=== PATIENT | female | born 1985 | race Caucasian/White ===

== ENCOUNTER → 2023-10-23 13:15 | Outpatient (BNV) | payer OTHER, SELFPAY | PROVIDERS: Visit Provider Internal Medicine | DX: D47.2 Monoclonal gammopathy (principal) | CPT/HCPCS: 99204; 99214 ==

== ENCOUNTER 2023-10-25 09:04 | Outpatient (REF) | payer OTHER, SELFPAY ==
[2023-10-26 15:11] LABS: Creatinine, mg/dL 69.85; Protein mg/dL 7 mg/dL
[2023-10-27 06:44] LABS: Creatinine, 24Hr Urine 1.3 G/Day (1.0-2.0); Protein 24 Hr Urine < 128 mg/Day (<150); Total Volume 24 Hour Urine 1825 mL
[2023-11-08 08:44] LABS: Free Kappa, 24Hr Urine 3.06; Free Lambda, 24Hr Urine 1.33
== END 2023-10-25 09:05 | disposition home or self-care (01) ==
LOC: HO.LNP 09:04
PROVIDERS: Visit Provider Internal Medicine
DX: D47.2 Monoclonal gammopathy (principal)
CPT/HCPCS: 83521; 84156; 86335

== ENCOUNTER 2024-05-12 11:13 | Outpatient (REF) | payer OTHER, SELFPAY ==
[2024-05-12 11:56] LABS: MANUAL DIFF FLAG NO
[2024-05-12 12:45] LABS: Basophils Percent Auto 0.8 % (0-2); Eosinophils Absolute Auto 0.1 X10*3/uL (0.0-0.4); Eosinophils Percent Auto 2.2 % (0-4); Hematocrit 37.1 % (37.0-47.0); Hemoglobin 12.4 g/dl (12.0-16.0); Imm Gran Abs Auto 0.01 X10*3/uL (0.00-0.03); Imm Gran Pct Auto 0.2 % (0.0-0.4); Lymphocytes Absolute Auto 2.2 X10*3/uL (1.2-4.9); Lymphocytes Percent Auto 42.6 % (20-40); Mean Corpuscular HGB Conc 33.4 g/dl (31.0-35.0); Mean Corpuscular Hemoglobin 29.9 pg (27.0-33.0); Mean Corpuscular Volume 89.4 fL (80.0-98.0); Monocytes Absolute Auto 0.4 X10*3/uL (0.1-1.2); Monocytes Percent Auto 7.9 % (2-11); Neutrophils Absolute Auto 2.4 x10*3/uL (2.0-8.3); Neutrophils Percent Auto 46.3 % (45-73); Platelet Count 282 X10*3/uL (160-400); Red Blood Count 4.15 X10*6/uL (4.20-5.50); Red Cell Distribution Width 12.2 % (11.0-16.0); White Blood Count 5.1 X10*3/uL (4.8-10.8)
[2024-05-12 13:10] LABS: Alanine Aminotransferase 53 U/L (0-31); Albumin Level 4.6 g/dL (3.5-5.0); Alkaline Phosphatase 37 U/L (39-117); Anion Gap 12 (12-20); Aspartate Amino Transferase 31 U/L (5-31); Bilirubin Total 0.6 mg/dL (0.0-1.0); Blood Urea Nitrogen 14 mg/dL (9-16); Calcium 9.7 mg/dL (8.4-10.2); Carbon Dioxide 25 mmol/L (22-29); Chloride 104 mmol/L (96-108); Estimated Glomerular Filt Rate > 60; Glucose Random 92 mg/dL (60-115); Potassium 4.2 mmol/L (3.3-5.1); Sodium 137 mmol/L (135-145)
[2024-05-13 10:49] LABS: Beta-2 Microglobulin, Serum 1.97 mg/L (< OR = 2.51)
[2024-05-13 11:59] LABS: IgA 22 mg/dL (47-310); IgG 2610 mg/dL (600-1640); IgM 67 mg/dL (50-300)
[2024-05-13 17:24] LABS: Kappa Light Chain, Free Serum 9.5 mg/L (3.3-19.4); Kappa/Lambda Lt Ch Free Ratio 0.14 (0.26-1.65)
== END 2024-05-12 11:14 | disposition home or self-care (01) ==
LOC: HO.LAB 11:13
PROVIDERS: PCP Family Medicine; Visit Provider Internal Medicine
DX: D47.2 Monoclonal gammopathy (principal)
CPT/HCPCS: 36415; 80053; 82232; 82784; 83521; 85025

== ENCOUNTER 2024-10-17 13:46 | Outpatient (REF) | payer OTHER, SELFPAY ==
--- OUTSIDE RECORDS SUMMARY | 2024-10-17 13:49 | XMS_ITS | Data Portability ---
Author Organization [facility], , [facility] Address [address] [place] [address] Care Team Providers Care Recreational Counselor Name Role Phone QUIANA MANN Rn Neurosurgical OLGA LYNCH Fire Extinguisher Sprinkler Inspector [phone] BILL JOSEPH Primary Care Provider Assessment No assessment recorded. Plan of Treatment Reminders Order Date Submit Date Provider Last Modified By Organization Details Last Modified Time Details Appointments Wellness Visit 30 2024 04:30P M Emi Gates MD Not available Not available Not available Lab hepatitis C virus Ab, serum 2022 023 [facility], [address] [place] [address], [id number], 03/26/2023 15:22:49 celiac disease comprehen sive panel, serum 2022 023 [facility], [address] [place] [address], [id number], 03/26/2023 15:22:48 CBC 2022 023 [facility], [address] [place] [address], [id number], 03/14/2023 12:03:38 TSH, serum or plasma 2022 023 [facility], [address] [place] [address], [id number], 03/26/2023 15:22:50 ESR (erythroc yte sedimenta tion rate), blood 2022 023 [facility], [address] [place] [address], [id number], 03/14/2023 16:45:46 C-reactiv e protein, quantitat celia, serum or plasma 2022 023 [facility], [address] [place] [address], [id number], 03/30/2023 09:34:40 vitamin B12, serum 2022 023 [facility], [address] [place] [address], [id number], 03/15/2023 14:11:07 folate, serum 2022 023 [facility], [address] [place] [address], [id number], 03/15/2023 14:11:08 iron + total iron-bind ing capacity (TIBC), serum 2022 023 [facility], [address] [place] [address], [id number], 03/15/2023 14:24:00 lipid panel, serum 2023 024 [facility], [address] [place] [address], [id number], 04/07/2024 14:42:34 TSH, serum or plasma 2023 024 [facility], [address] [place] [address], [id number], 04/04/2024 12:04:55 glucose, QN [mass/vol ume], serum or plasma 2023 024 [facility], [address] [place] [address], [id number], 04/07/2024 14:42:34 Referral gastroent erologist referral - pt with bloating, hx of idiopathi c urticaria , bloating, and per ancestry celiac carrier, endorses bloating after gluten, eliminate d and improved symptoms 2022 023 [email or web address] [facility], [address] [place], [id number], 03/19/2023 17:16:34 Procedures None recorded. Surgeries None recorded. Imaging None recorded. Medication Orders sertralin e 50 mg tablet 2023 024 [facility][id number], [address] [place], [place], [id number], 04/03/2024 16:04:14 hydroxyzi ne HCl 25 mg tablet 2023 024 [facility] #[id number], [address], [place], [id number], 04/03/2024 16:04:15 Patient TargetsNo targets recorded. 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 ? ?L 3.98-1 0.04 Not Available [address], [address], 03/14/2023 12:03:38 03/14/20 23 03/14/2023 CBC RBC 4.20 M/? ? ?L 3.93-5 .22 Not Available [address], [address], 03/14/2023 12:03:38 03/14/20 23 03/14/2023 CBC HGB 12.2 g/dL 11.2-1 5.7 Not Available [address], [address], 03/14/2023 12:03:38 03/14/20 23 03/14/2023 CBC HCT 37.8 % 34.1-4 4.9 Not Available [address], [address], 03/14/2023 12:03:38 03/14/20 23 03/14/2023 CBC MCV 90.0 fL 79.4-9 4.8 Not Available [address], [address], 03/14/2023 12:03:38 03/14/20 23 03/14/2023 CBC MCH 29.0 pg 25.6-3 2.2 Not Available [address], [address], 03/14/2023 12:03:38 03/14/20 23 03/14/2023 CBC MCHC 32.3 g/dL 32.2-3 5.5 Not Available [address], [address], 03/14/2023 12:03:38 03/14/20 23 03/14/2023 CBC plt 334 K/? ? ?L 182-36 9 Not Available [address], [address], 03/14/2023 12:03:38 03/14/20 23 03/14/2023 CBC MPV 9.2 fL 9.4-12 .3 low Not Available [address], [address], 03/14/2023 12:03:38 03/14/20 23 03/14/2023 CBC neut% 45.1 % 34.0-7 1.1 Not Available [address], [address], 03/14/2023 12:03:38 03/14/2003/14/2023 CBC neut# 3.07 1.56-6 .13 Not Available [address], [address], 03/14/2023 12:03:38 03/14/2003/14/2023 CBC lymph % 45.1 % 19.3-5 1.7 Not Available [address], [address], 03/14/2023 12:03:38 03/14/2003/14/2023 CBC lymph # 3.07 K/? ? ?L 1.18-3 .74 Not Available [address], [address], 03/14/2023 12:03:38 03/14/2003/14/2023 CBC mono% 7.0 % 4.7-12 .5 Not Available [address], [address], 03/14/2023 12:03:38 03/14/2003/14/2023 CBC mono# 0.48 0.24-0 .56 Not Available [address], [address], 03/14/2023 12:03:38 03/14/2003/14/2023 CBC eo% 2.1 % 0.7-5. 8 Not Available [address], [address], 03/14/2023 12:03:38 03/14/2003/14/2023 CBC eo# 0.14 0.04-0 .36 Not Available [address], [address], 03/14/2023 12:03:38 03/14/20 23 03/14/2023 CBC baso% 0.6 % 0.1-1. 2 Not Available [address], [address], 03/14/2023 12:03:38 03/14/20 23 03/14/2023 CBC baso# 0.04 0.00-0 .08 Not Available [address], [address], 03/14/2023 12:03:38 03/14/20 23 03/14/2023 CBC RDW-CV 12.7 % 11.7-1 4.4 Not Available [address], [address], 03/14/2023 12:03:38 03/14/20 23 03/14/2023 CBC Ig% 0.100 % 0.000- 1.500 Ig % >0.5 Indic ates possi ble Left Shift Not Available [address], [address], 03/14/2023 12:03:38 03/14/20 23 03/14/2023 CBC Ig# 0.010 0.000- 0.093 Not Available [address], [address], 03/14/2023 12:03:38 03/14/20 23 03/14/2023 CBC NRBC% 0.0 % 0.0-0. 2 Not Available [address], [address], 03/14/2023 12:03:38 03/14/20 23 03/14/2023 CBC NRBC# 0.000 0.000- 0.012 Not Available [address], [address], 03/14/2023 12:03:38 03/14/20 23 03/14/2023 ESR sed rate 45.0 0.0-15 .0 high Not Available [address], [address], 03/14/2023 16:45:46 03/14/20 23 03/15/2023 VITAM IN B12 vitamin B12 351 pg/mL 230-10 50 Not Available [address], [address], 03/15/2023 14:11:07 03/14/20 23 03/15/2023 FOLAT E folate 8 NG/mL 3-16 Not Available [address], [address], 03/15/2023 14:11:08 03/14/20 23 03/15/2023 IRON PANEL iron 81 ug/dL 35-150 Not Available [address], [address], 03/15/2023 14:24:00 03/14/20 23 03/15/2023 IRON PANEL T.I.B.C. 312 ug/dL 250-45 0 Not Available [address], [address], 03/15/2023 14:24:00 03/14/20 23 03/15/2023 IRON PANEL % saturation 26.0 % Not Available [address], [address], 03/15/2023 14:24:00 03/14/20 23 03/26/2023 SHREYAS C DISEA SE COMPR EHENS CELIA PANEL interpretati on No serol ogica l evide nce for shreyas c disea se is prese nt. Consi gail IgA defic iency . Not Available [facility] [address] [place] [address] Phillip SainiborLUX vogel, [address], 03/26/2023 15:22:48 03/14/20 23 03/26/2023 SHREYAS C DISEA SE COMPR EHENS CELIA PANEL tissue transglutami nase Ab, IgA <1.0 U/mL normal Value Inter preta tion ----- ----- ----- ---- <15.0 Antib sherice not detec noah > or = 15.0 Antib sherice detec noah Not Available [facility] [address], [place], [address], 03/26/2023 15:22:48 03/14/2003/26/2023 SHREYAS C DISEA SE COMPR EHENS CELIA PANEL immunoglobul in A 35 mg/dL 47-310 low Not Available [facility] [address], [place], [address], 03/26/2023 15:22:48 03/14/2003/26/2023 HEPAT ITIS C AB W/REF L TO HCV RNA, QN, PCR hepatitis C antibody NON-RE ACTIVE non-re active normal HCV antib sherice was non-r eacti ve. There is no labor atory evide nce of HCV infec tion. In most cases , no furth er actio n is requi red. Howev er, if recen t HCV expos ure is suspe cted, a test for HCV RNA (test code 25449 ) is sugwilliams motad. For addit ional infor bruce guevara e refer to http: //[facility] kandice morillo stdia gnost ics.c om/fa q/FAQ 22v1 (This link is being provi ded for infor bruce sheth/ educa huy l purpo ses only. ) Not Available [facility] [address], [place], [address], 03/26/2023 15:22:49 03/14/2003/26/2023 TSH TSH 2.67 mIU/L normal Refer ence Range > or = 20 Years 0.40- 4.50 Pregn kavitha Range s First trime ster 0.26- 2.66 Secon d trime ster 0.55- 2.73 Third trime ster 0.43- 2.91 Not Available [facility] [address], [place], [address], 03/26/2023 15:22:50 03/14/2003/26/2023 TISSU E TRANS GLUTA HAL E AB, IGG tissue transglutami nase Ab, IgG <1.0 U/mL normal Value Inter preta tion ----- ----- ----- ---- <15.0 Antib sherice not detec noah > or = 15.0 Antib sherice detec noah Not Available [facility] [address], [place], [address], 03/26/2023 15:22:51 03/14/2003/30/2023 C-RIKI CTIVE PROTE IN C-reactive protein 1.1 mg/L <8.0 normal Not Available [facility] [address], [place], [address], 03/30/2023 09:34:40 08/07/20 23 08/08/2023 C-RIKI CTIVE PROTE IN (RCRP ) C-reactive protein (rcrp) 1.8 mg/dL 0.5-9. 0 LIPS= Speci men Sligh tly Lipem ic. Chem Resul ts may be effec noah. Not Available [address], [place], [address], 08/08/2023 11:43:47 08/07/2008/11/2023 SHREYAS C DISEA SE COMPR EHENS CELIA PANEL interpretati on No serol ogica l evide nce for shreyas c disea se is prese nt. Consi gail IgA defic iency . Not Available [facility] [address], [place], [address], 08/11/2023 07:18:26 08/07/20 23 08/11/2023 SHREYAS C DISEA SE COMPR EHENS CELIA PANEL tissue transglutami nase Ab, IgA <1.0 U/mL normal Value Inter preta tion ----- ----- ----- ---- <15.0 Antib sherice not detec noah > or = 15.0 Antib sherice detec onah Not Available [facility] [address], [address], 08/11/2023 07:18:26 08/07/2008/11/2023 SHREYAS C DISEA SE COMPR EHENS CELIA PANEL immunoglobul in A 29 mg/dL 47-310 low Not Available [facility] [address], [address], 08/11/2023 07:18:26 08/07/20 23 08/11/2023 SED RATE BY MODIF IED WESTE RGREN sed rate by modified westergren 48 mm/h < or = 20 high Not Available [facility] [address], [address], 08/11/2023 07:18:27 08/07/2008/11/2023 TISSU E TRANS GLUTA HAL E AB, IGG tissue transglutami nase Ab, IgG <1.0 U/mL normal Value Inter preta tion ----- ----- ----- ---- <15.0 Antib sherice not detec noah > or = 15.0 Antib sherice detec noah Not Available [facility] [address], [address], 08/11/2023 07:18:27 04/03/20 24 04/04/2024 TSH TSH 2.58 uIU/m L 0.50-6 .00 The Ameri can Colle ge of Endoc rinol ogy and Ameri can Thyro id Assoc iatio n recom mend goal TSH value s betwe en 0.4-4 .0 mIU/m L. Not Available [address], [address], 04/04/2024 12:04:55 04/03/20 24 04/07/2024 LIPID PANEL cholesterol 229 mg/dL <200 mg/dl Noa able 200-2 39 mg/dl Borde rline High >240 mg/dl High Not Available [address], [address], 04/07/2024 14:42:33 04/03/20 24 04/07/2024 LIPID PANEL triglyceride s 123 mg/dL <150 mg/dL Park l 150-1 99 mg/dL Borde rline High 200-4 99 mg/dL High >500 mg/dL Very High Not Available [address], [address], 04/07/2024 14:42:33 04/03/20 24 04/07/2024 LIPID PANEL direct HDL 52 mg/dL <40 mg/dl - Major Risk for CHD >60 mg/dl - Negat celia Risk for CHD Not Available [address], [address], 04/07/2024 14:42:33 04/03/20 24 04/07/2024 GLUCO SE glucose 99 mg/dL 70-100 Not Available [address], [address], 04/07/2024 14:42:34 04/03/20 24 04/07/2024 DIREC T LDL direct LDL 139 mg/dL RISK CATEG ORY LDL GOAL _ CHD or CHD Risk Equiv alent s <100 mg/dl (10-y ear risk >20%) 2+ Risk Facto rs <130 mg/dl (10-y ear risk <= 20%) 0-1 Risk Facto r? <160 mg/dl ? Almos t all peopl e with 0-1 risk facto r have a 10 year risk <10%, thus 10 year risk asses ment in peopl e with 0-1 risk facto r is not corneleunice tovar. Not Available [address], [address], 04/07/2024 14:42:35 Result Notes None recorded. 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 Active 2023 sees quin Gates MD [address] [place] [address], [phone] , [facility] 4 14:54:20 Anxiety 69946594 Active 2023 Emi Gates MD [address] [place] [address], [phone] , [facility] 4 14:54:32 Headache 07536413 Active 2005 Not Available [facility] 1 23:51:51 Dysmenorrh ea 109267852 Completed 200608/06/2013 Not Available [facility] 3 02:03:01 On examinatio n - a rash Completed 08/06/2013 Not Available [facility] 3 02:00:47 Acne 55133910 Active 2007 Not Available [facility] 1 23:51:51 Allergy to drug 390536630 Active 2006 Not Available [facility] 1 23:51:51 Dog bite Completed 08/06/2013 Not Available [facility] 3 02:04:21 Malaise and fatigue 634934416 Completed 200508/06/2013 Not Available [facility] 3 02:00:16 Disorder of upper respirator y system 162215075 Completed 200508/06/2013 Not Available [facility] 3 02:03:48 Urticaria 602478756 Active 2003 Not Available [facility] 23:51:51 Problem Notes None recorded. Procedures Surgical History Date Name Laterality Status Provider Name and Address Organization Details Recorded Time 8 POC Flu Testing completed Annalisa Hauser MA [facility] 09/27/2017 14:31:44 7 POC Strep Testing completed Claire Bliss MA [facility] 08/21/2017 17:35:36 Imaging Results None recorded. Procedure Notes None recorded. Medical Equipment None Reported. Allergies No known drug allergies Medications Name Sig Start Date Stop Date Status Note LastModified by Organization Details LastModified Time Apri 0.15 mg-0.03 mg tablet 2006 active Take 1.00 tabs daily Not Available Not Available Not Available tretinoin 0.025 % topical cream Apply 1 applicat ion by topical route at bedtime for 30 days. 2013 active Not Available Not Available Not Avai lable tetracycli ne 250 mg capsule 2007 active Take 1.00 caps twice daily Not Available Not Available Not Available Micronor (28) 0.35 mg tablet Take 1 tablet every day by oral route. 2008 active Not Available Not Available Not Avai lable sertraline 50 mg tablet Take 1 tablet every day by oral route. 04/03 completed not taking 04/03/24 mk Not Available Not Available Not Available Augmentin 500 mg-125 mg tablet 1 PO BID 10 D 2008 active Not Available Not Available Not Avai lable Vitals Date Recorded Body weight Provider Name an d Address Organization Details Last Updated DateTime 03/02/2022 94269.18 g Leyda Shafer MA [facility] 03/02/2022 15:41:40 Date Recorded Body mass index (BMI) Body height Provider Name and Address Organization Details Last Updated DateTime 03/02/2022 24.4 kg/m2 172.72 cm Leyda Shafer MA [facility] 03/02/2022 15:41:45 Date Recorded Heart rate Provider Name an d Address Organization Details Last Updated DateTime 03/02/2022 76 /min Leyda Shafer MA [facility] 03/02/2022 15:51:58 Date Recorded Body weight Provider Name an d Address Organization Details Last Updated DateTime 03/08/2023 83854.78 g Mariely Matos [facility] 03/08/2023 15:34:20 Date Recorded Body mass index (BMI) Body height Provider Name and Address Organization Details Last Updated DateTime 03/08/2023 24.3 kg/m2 172.72 cm Mariely Fox [facility] 03/08/2023 15:34:24 Date Recorded Heart rate Provider Name an d Address Organization Details Last Updated DateTime 03/08/2023 72 /min Mariely Matos [facility] 03/08/2023 15:38:25 Date Recorded Body height Provider Name an d Address Organization Details Last Updated DateTime 11/26/2023 172.72 cm Mariely Matos [facility] 11/26/2023 14:27:02 Date Recorded Body height Provider Name an d Address Organization Details Last Updated DateTime 04/03/2024 170.82 cm Mariely Sl[facility] 04/03/2024 15:37:26 Date Recorded Body mass index (BMI) Body weight Provider Name and Address Organization Details Last Updated DateTime 04/03/2024 25.2 kg/m2 65523.36 g Mariely Fox [facility] 04/03/2024 15:37:22 Date Recorded Heart rate Provider Name an d Address Organization Details Last Updated DateTime 04/03/2024 80 /min Mariely Matos [facility] 04/03/2024 15:39:51 Date Recorded Systolic blood pressure Diastolic blood pressure Provider Name and Address Organization Details Last Updated DateTime 03/02/2022 100 mm[Hg] 68 mm[Hg] Leyda Shafer LUX [facility] 03/02/2022 15:50:53 Date Recorded Systolic blood pressure Diastolic blood pressure Provider Name and Address Organization Details Last Updated DateTime 03/08/2023 115 mm[Hg] 68 mm[Hg] Mariely Mike [facility] 03/08/2023 15:38:20 Date Recorded Systolic blood pressure Diastolic blood pressure Provider Name and Address Organization Details Last Updated DateTime 04/03/2024 110 mm[Hg] 70 mm[Hg] Mariely Mckeon [facility] 04/03/2024 15:38:59 Social History Question Answer Notes LastModified by Organizat ion Details LastModified Time Tobacco Smoking Status Never Smoker Not Available [facility] 08/03/2011 04:53:49 What Is Your Level Of Alcohol Consumption? Moderate Information not available 03/02/2022 Do You Wear A Helmet When Biking? Yes Information not available 08/20/2015 What Is Your Level Of Caffeine Consumption? Moderate 1 Cups Of Coffee Daily [email or web address] Information not available 04/03/2024 How Much Tobacco Do You Chew? None [email or web address] Information not available 08/03/2011 Are You Currently Employed? Yes Information not available 03/02/2022 What Type Of Diet Are You Following? REGULAR Information not available 08/20/2015 Education 4 Year College [email or web address] Information not available 08/03/2011 What Is The Highest Grade Or Level Of School You Have Completed Or The Highest Degree You Have Received? 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 No [email or web address] Information not available 03/08/2023 How Many Days In The Past Year Have You Had A Heavy Drinking Consumption (4+ Female, 5+ Male)? 0 Information not available 08/20/2015 Are There Any Guns Present In Your Home? No [email or web address] Information not available 08/03/2011 Do You Use Insect Repellent Routinely? Yes Information not available 03/02/2022 Live Alone Or With Others? With Others Information not available 08/20/2015 Does The Patient Have Difficulty Speaking Cambodian? No Information not available 08/20/2015 Does The Patient Have Difficulty Reading Cambodian? No Information not available 08/20/2015 Patient Has Health Care Proxy Signed And In Chart Yes [email or web address] Information not available 04/04/2024 Marital Status (spouse With CML). Information not available 08/20/2015 Mosquito Repellent Used Routinely Yes Information not available 08/20/2015 What Was The Date Of Your Most Recent Tobacco Screening? 04/03/2024 [email or web address] Information not available 04/03/2024 How Many Children Do You Have? 2 Irvin (red Head) 2014, [email or web address] Information not available 03/02/2022 What Is Your Relationship Status? Information not available 03/02/2022 Do You Use Your Seat Belt Or Car Seat Routinely? Yes Information not available 03/02/2022 Seat Belts Used Routinely Yes [email or web address] Information not available 08/03/2011 Are You Sexually Active? Yes [email or web address] Information not available 10/13/2015 Smoke Alarm In Home Yes [email or web address] Information not available 08/03/2011 Do You Have Smoke And Carbon Monoxide Detectors In Your Home? Yes Information not available 03/02/2022 Are You Passively Exposed To Smoke? No Information not available 03/02/2022 General Stress Level Medium Information not available 10/13/2015 Do You Use Any Illicit Or Recreational Drugs? No Information not available 03/02/2022 Do You Use Sunscreen Routinely? Yes [email or web address] Information not available 08/03/2011 Do You Or Have You Ever Used Any Other Forms Of Tobacco Or Nicotine? No Information not available 03/02/2022 How Many Days In The Past Year Have You Consumed 4 Or More Drinks? 0 [email or web address] Information not available 03/08/2023 Sex: Female Functional Status Question Answer Note LastModified by Organizat ion Details LastModified Time What is your exercise level? Moderate 2/week Information not available 03/02/2022 Mental Status None recorded. Family History Relationship Description Onset Age of this Age Resolved Age Notes LastModified by Organization Details LastModified Time Mother Disorder of thyroid gland previo usly record ed as Thyroi d Diseas e [email or web address] [id number] Not available 04/28/2013 03:00:11 Paternal Grandmother Cerebrovascu lar accident due to arryth daylin. [email or web address] Not available 09/23/2013 09:06:24 Father Hypertensive disorder 40 Not available 03/02 16:06:29 Father Diabetes mellitus [email or web address] Not available 16:05:07 Notes:Mother: HTN, Graves, C hrons, ulcerative colitis Medical History No medical history recorded. Gynecological History Statement/Question Response History of Abnormal Pap Yes Current Control Method IUD Date of LMP 02/06/2022 LMP Approximate Obstetrics History GPAL:G 0 P 0 0 0 0 Immunizations Vaccine Type Date Status Note Provider Nam e and Address Organization Details Recorded Time Influenza, split virus, quadrivalent, PF 4 completed Not Available [facility] 10/04/2019 02:37:18 Influenza, split virus, quadrivalent, PF 5 completed Not Available [facility] 10/04/2019 02:38:49 Tdap 9 completed Not Available [facility] 10/04/2019 02:30:34 Influenza, split virus, quadrivalent, PF 8 completed Not Available [facility] 10/04/2019 02:40:14 Influenza, split virus, quadrivalent, PF 9 completed Not Available [facility] 10/04/2019 02:28:14 Td (adult), 2 Lf tetanus toxoid, preservative free, adsorbed 2 completed Collette Gerber, [facility], [address], [facility] 03/04/2022 13:03:37 Influenza, split virus, quadrivalent, preservative 1 completed LUX Barnes, [facility] 09/22/2021 10:06:28 COVID-19, mRNA, LNP-S, PF, 30 mcg/0.3 mL dose 1 completed LUX Noyola, [facility] 09/26/2021 09:18:18 Past Encounters Encounter ID Performer Location Encounter Start Date Encounter Closed Date Diagnosis/Indication Diagnosis SNOMED-CT Code Diagnosis ICD10 Code Diagnosis Note [id number] LAB - [address] [address] 01/12/2004 14:50:23 01/12/2004 14:50:41 [id number] Radiology , [address] [address] 12/04/2005 11:33:20 12/04/2005 12:06:23 [id number] , [facility], [address] [place] [address] 05/16/2007 13:24:20 05/22/2007 18:06:43 [id number] [facility], [address] [place] [address] 08/02/2007 14:17:21 10/07/2008 02:02:29 [id number] [facility], [address] [place] [address] 09/05/2007 09:12:54 10/07/2008 02:02:29 [id number] [facility], [address] [place] [address] 05/01/2008 11:38:13 10/07/2008 02:02:29 [id number] [facility], [address] [place] [address] 01/18/2009 13:38:51 01/25/2009 09:09:13 [id number] [facility], [address] [place] [address] 02/08/2009 11:35:56 02/12/2009 13:05:55 [id number] [facility], [address] [place] [address] 04/26/2011 12:08:39 04/28/2011 09:19:14 [id number] [facility], [address] [place] [address] 01/12/2012 13:14:32 01/15/2012 09:54:43 [id number] [facility], [address] [place] [address] 02/26/2012 14:07:31 02/29/2012 07:12:16 [id number] Juliana Cameron LPN [facility], [address] [place] [address] 09/23/2013 08:14:33 09/23/2013 12:31:42 Adult health examination [id number] see Risk Assessment and Lifestyle Change Counseling section above. healthy 28 year old. considerin g . will check tsh due to family history. Counseling [id number] Family his tory of Thyroid disorder [id number] will check tsp as pt is attempting . Acne 04102874 given pt is attempting to soon discussed contraindi cation of retinoids. Influenza vaccine needed [id number] Alyssa Goldman MD , [facility], [address] [place] [address] 08/20/2015 10:23:24 08/20/2015 11:52:10 Active or passive immunization 538434639 Z23 Hyperventilation 3123838 4 R06.4 likely hyperventi lation syndrome some new stressors in life suggested therapy might be helpful over all recommende d avoiding Chobani yogurt to see also if this triggers the sx given she has hx of various triggers reviewed exercises when she has sx below f/u PRN pt reassured [id number] Shelbi Montano , [facility], [address] [place] [address] 10/13/2015 10:23:08 10/14/2015 08:18:03 Adult health examination 597674259 Z00.00 see Risk Assessment and Lifestyle Change Counseling section above, healthy 30 year old, now with 10 month old daughter, thriving, 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 referral to derm for management . Chronic urticaria 494793 05 L50.8 stable with benedryl every other day qhs. [id number] Raúl Ceron MD , [facility], [address] [place] [address] 08/21/2017 17:23:35 08/22/2017 08:07:53 Acute upper respiratory infection 81025273 J06.9 [id number] Alyssa Goldman MD , [facility], [address] [place] [address] 09/27/2017 14:14:17 09/28/2017 14:20:25 Common cold 76581152 J00 Cold self care measures reviewed and encouraged (fluids, steam inhalation , adequate rest). F/U if sx worsen or aren't resolving. [id number] Fatmata Joyner , [facility], [address] [place] [address] 07/08/2018 08:27:29 07/11/2018 16:26:03 Active or passive immunization 085910063 Z23 [id number] Rafia Paul RN , [facility], [address] [place] [address] 07/04/2019 07:53:12 07/11/2019 14:44:03 Administration of influenza vaccine 08366640 Z23 Active or passive immunization 065539875 Z23 [id number] NORA Malin , [facility], [address] [place] [address] 03/02/2022 15:31:05 03/08/2022 16:34:21 Adult health examination 300865854 Z00.00 See Risk Assessment and Lifestyle Change Counseling section above,Gene josé: Healthy 36 year old, now two kids (daughter born in 2014, son in 2018). Due for pap, prefers to complete with OBGYN- appt. scheduled April 2022. Recent URI x10 days resolving. Mood: Doing well overall. Discussed peer support for emotionall y challengin g terminatio n in 2018, pt reports well supported but will seek additional support services as desired. Counseling 117731652 Z71 .9 Discussed covid vaccinatio n-- fully vaccinated with two doses and booster, plus covid-19 positive December 2021 no sequelae. Answered questions regarding immunizati on, advised to get booster when next approved for booster by CDC guidelines (no need to delay due to having had covid).Dis cussed pt concerns regarding water weight and mirena IUD. Wt. steady at 160 since 2018, BMI in normal range. Does not wish to switch BCM at this time. Pt to continue routine exercise and varied diet, with a focus on increasing calcium intake through diet for bone health and will start OTC vitamin D supplement ation. Depression screening 171 083228 Z13.31 depression screening tool administer ed, entered into emr, scored and discussed, time greater than 7.5 minutes Screening for alcohol abuse 841200084 Z13.39 Active or passive immunization 112720215 Z23 Chronic urticaria 674383 05 L50.8 stable with half dose zyrtec QOD. Answered questions regarding possible environmen anabell contributi ng factors given relief when traveling, discussed option of further allergy evaluation pt to consider. [id number] NORA Malin, [facility], [address] [place] [address] 03/08/2023 15:28:07 03/08/2023 16:24:01 Adult health examination 435077467 Z00.00 See Risk Assessment and Lifestyle Change Counseling section above,Gene ral: Healthy 37 year old, now two kids (daughter born in 2015, son in 2018). pap followed by hari kidd guidance reviewed Depression screening 171 Z13.31 depression screening tool administer ed Screening for alcohol abuse 203890663 Z13.39 Alcohol use screening tool administer ed Screening for disorder 616690979 Z11.59 Chronic urticaria 052235 05 L50.8 stable with half dose zyrtec QOD. now with bloating improved with gluten avoidance, see belowrecen t pain and pruitits after shower, if persist consider allergy referral Abdominal bloating 19197 9008 R14.0 possible celiacs, has mostly abstained from gluten, labs as ordered above, referral to gi [id number] Emi Gates MD , [facility], [address] [place] [address] 11/26/2023 14:26:07 11/26/2023 18:07:42 Monoclonal gammopathy of uncertain significance 759034264 D47.2 pt [facility] opinionfol lowup heme Anxiety 19664637 F41.9 discussed daily med vs prn, decided to try both for nowdiscuss ed expectatio ns and SEcall if concernsfo llowup with me 3 weeks ( switching to me as PCP) [id number] Emi Gates MD , [facility], [address] [place] [address] 04/03/2024 15:24:46 04/04/2024 11:52:10 Adult health examination 551271558 Z00.00 pap 05/08 has GYNtd 03/08never smokerlabs today Depression screening 171 Z13.31 depression screening tool administer ed, 0 Screening for alcohol abuse 197176287 Z13.39 Alcohol use screening tool administer ed Monoclonal gammopathy of uncertain significance 545020446 D47.2 followup heme Anxiety 18833065 F41.9 stable off medscall if concerns Health Concerns Section Related Observation LastModified by Organization Detai ls LastModified Time None Recorded Concern Status LastModified by Organization Details LastModified Time None Recorded Advance Directives Directive None Recorded Payers Encounter Date Sequence Insurance Name Policy Number Policy Cunningham Covered Member ID Cunningham Member ID Guarantor Name 07/04/2019 1 [place] [facility] (HMO) [id number] Coreen Celestin Mary Kay [id number] Shelbi Matos Mary Kay 03/02/2022 1 [facility] (O) [id number] Shelbi Khalildeep [id number] Shelbi Matos Mary Kay 03/08/2023 1 [facility] [id number] Shelbi Matos Mary Kay [id number] Shelbi Matos Mary Kay 11/26/2023 1 [facility] [id number] Shelbi Matos Mary Kay [id number] Shelbi Matos Remideep 04/03/2024 1 [facility] - DOS ON OR AFTER 2022 - [facility] (MEDICAID REPLACEMENT - HMO) Shelbi Matos Mary Kay [id number] Shelbi Matos Mary Kay Notes Date Note Type Note Provider Name and Address Organization Details Recorded Time 03/02/2022 text/html Physical Exam/FemaleReported bypatient.PHAPatient is here for a Wellness Visit. She describes her health status as good. Patient's health is better than last year.Risk Assessment and Lifestyle Change Counseling 18-50Reported bypatient.Coronary Artery Disease Risk Assesment:Family History of Coronary Artery Disease; No personal history of diabetes; No history of peripheral vascular disease, AAA, or carotid disease; No personal history of coronary artery disease Breast Cancer Risk Assessment:No family history of breast cancer; No history of breast cancer or dcis Lung Cancer Risk Assessment:Never smoked; No asbestos exposure Cognitive/Behavioral Risk Assessment:No personal history of mental illness; No family history of mental illness Safety Risk Assessment:No evidence of abuse/neglectRisk Assessment and Lifestyle Change Counseling-female 27-39Reported bypatient.Coronary Artery Disease Risk Assesment:Family History of Coronary Artery Disease; Regular exercise program; Eats a diet low in fats and high in fiber; No personal history of hypertension; Lipids in good range; No personal history of diabetes; No use of tobacco; No personal history of coronary artery disease Breast Cancer Risk Assessment:No family history of breast cancer; No history of breast cancer or dcis; Menarche: age greater than 12; Has been to term; No history of female hormone exposure Cervical Cancer Risk Assessment:No abnormal pap smears; No evidence of HPV infection; Monogamous Lung Cancer Risk Assessment:Never smoked; No asbestos exposure Risk for Sexually transmitted disease Assessment:No history of sexually transmitted disease; Monogamous relationship Cognitive/Behavioral Risk Assessment:No history of depression; No family history of depression Safety Risk Assessment:Uses helmet for high velocity activities; Uses seat belts; No evidence of abuse/neglect Diet:Counseled about the importance of maintaining a positive calcium balance and taking 1000 iu Vitamin D daily. Exercise counseling:Discussed the importance of daily physical activity; Discussed the importance of weight bearing exercise Safety:Counseled about protecting skin from the sun and lowering the risk of skin cancer; Counseled about use of seat belts Advanced Directives:Discussed the importance of a health care proxy and advanced directives; Discussed DNR status General: Pt presents for routine wellness exam. Due for pap, prefers to complete with monty MENDIOLA. scheduled April 2022. 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 URI onset 10 days ago began as productive chest cold and congestion, currently occasional dry cough, not disrupting sleep), resolving. Hives-- has taken zyrtec daily since adolescence, has been decreasing dose now taking half pill every other day. Had one episode of hives 02/23/2022, took full zyrtec pill and hives resolved. Pt reports after week of sun exposure leg itchiness largely resolved, wondering if hives and vitamin d deficiency has any correlation? Weight: Pt reports experiencing mild water weight since getting mirena IUD, working out routinely but reports not seeing weight loss results she would like to, though reports non-scale improvements in health. Covid-19: Had covid-19 in December 2021, fully vaccinated with 1 booster and no sequelae. 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 brain aneurysm. 52 or 53 years of pt was diagnosed with CML- received chemo, in complete remission.2) pt reports indigestion or possible air bubbles has sensitive stomach. diagnosed with swallowing too much air. was reassured,3) hives, pt went through allergy testing, pt recently stopped zyrtec, (was treating with zyrtec) pt noted she feels better without zyrtec, pt feels like mood has improved. as an alternative pt has been taking 1 benedryl every other night, pt reports it is working well. when cessation of this breaks out in hives.4) acne, pt reports acne around face, pt has scarring from acne. Collette Gerber, [facility], [address], [facility] 03/04/2022 13:04:12 03/08/2023 text/html Physical Exam/FemaleReported bypatient.PHAPatient is here for a Wellness Visit. She describes her health status as good. Patient's health is better than last year.Risk Assessment and Lifestyle Change Counseling 18-50Reported bypatient.Coronary Artery Disease Risk Assesment:Family History of Coronary Artery Disease; No personal history of diabetes; No history of peripheral vascular disease, AAA, or carotid disease; No personal history of coronary artery disease Breast Cancer Risk Assessment:No family history of breast cancer; No history of breast cancer or dcis Lung Cancer Risk Assessment:Never smoked; No asbestos exposure Cognitive/Behavioral Risk Assessment:No personal history of mental illness; No family history of mental illness Safety Risk Assessment:No evidence of abuse/neglectRisk Assessment and Lifestyle Change Counseling-female 27-39Reported bypatient.Coronary Artery Disease Risk Assesment:Family History of Coronary Artery Disease; Regular exercise program; Eats a diet low in fats and high in fiber; No personal history of hypertension; Lipids in good range; No personal history of diabetes; No use of tobacco; No personal history of coronary artery disease Breast Cancer Risk Assessment:No family history of breast cancer; No history of breast cancer or dcis; Menarche: age greater than 12; Has been to term; No history of female hormone exposure Cervical Cancer Risk Assessment:No abnormal pap smears; No evidence of HPV infection; Monogamous Lung Cancer Risk Assessment:Never smoked; No asbestos exposure Risk for Sexually transmitted disease Assessment:No history of sexually transmitted disease; Monogamous relationship Cognitive/Behavioral Risk Assessment:No history of depression; No family history of depression Safety Risk Assessment:Uses helmet for high velocity activities; Uses seat belts; No evidence of abuse/neglect Diet:Counseled about the importance of maintaining a positive calcium balance and taking 1000 iu Vitamin D daily. 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 struggling with ouddoing better now pt was diagnosed at age 17 w chronic uriticaria,after having Rashida (5 years ago)hives systemic, itchiness only happens when gets out of shower in amdaily when gets out of the shower, daily ,takes zyrtec daily lasts 24 hours ancestry test demonstrated gluten conditionfeels much better without glutenno constipation, endorses sig bloating and fatigue when eats glutenno diarrheahas not been tested or seen gihas been mostly gluten free in last 6 weeks no concerns re mental healthno concers re drugs or etoh 03/02/22General: Pt presents for routine wellness exam. Due for pap, prefers to complete with monty MENDIOLA. scheduled April 2022. 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 URI onset 10 days ago began as productive chest cold and congestion, currently occasional dry cough, not disrupting sleep), resolving. Hives-- has taken zyrtec daily since adolescence, has been decreasing dose now taking half pill every other day. Had one episode of hives 02/23/2022, took full zyrtec pill and hives resolved. Pt reports after week of sun exposure leg itchiness largely resolved, wondering if hives and vitamin d deficiency has any correlation? Weight: Pt reports experiencing mild water weight since getting mirena IUD, working out routinely but reports not seeing weight loss results she would like to, though reports non-scale improvements in health. Covid-19: Had covid-19 in December 2021, fully vaccinated with 1 booster and no sequelae. 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 Was seeing reconstructive surgeon for chronic hives. 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 Mspike 2.6 if reaches 3 considered smoldering multiple myeloma.Pt freaking out. Cant sleep, worse at night when less distractions. Afraid of dying, has small children Emi Gates MD [address] [place], [address], [facility] 11/26/2023 15:01:29 04/03/2024 text/html [birth year] yo F f or [place].Anxiety stable, stopped meds. Took a vacation and came back feeling better. Sleeping well. Still anxious but using lifestyle changes to manage.Seeing heme in april for 6 month followup labs Emi Gates MD [address] [place], [address], [facility] 04/03/2024 16:07:43 OBGyn Episode No OBEpisode recorded.
[2024-10-17 14:05] LABS: MANUAL DIFF FLAG NO
[2024-10-17 14:08] LABS: Basophils Percent Auto 0.6 % (0-2); Eosinophils Absolute Auto 0.1 X10*3/uL (0.0-0.4); Eosinophils Percent Auto 1.9 % (0-4); Hematocrit 34.1 % (37.0-47.0); Hemoglobin 11.6 g/dl (12.0-16.0); Imm Gran Abs Auto 0.01 X10*3/uL (0.00-0.03); Imm Gran Pct Auto 0.2 % (0.0-0.4); Lymphocytes Absolute Auto 2.4 X10*3/uL (1.2-4.9); Mean Corpuscular Hemoglobin 30.1 pg (27.0-33.0); Mean Corpuscular Volume 88.3 fL (80.0-98.0); Mean Platelet Volume 8.5 fL (9.4-12.3); Monocytes Absolute Auto 0.4 X10*3/uL (0.1-1.2); Monocytes Percent Auto 7.1 % (2-11); Neutrophils Absolute Auto 3.2 x10*3/uL (2.0-8.3); Neutrophils Percent Auto 51.2 % (45-73); Platelet Count 273 X10*3/uL (160-400); Red Blood Count 3.86 X10*6/uL (4.20-5.50); Red Cell Distribution Width 12.1 % (11.0-16.0); White Blood Count 6.2 X10*3/uL (4.8-10.8)
[2024-10-17 14:28] LABS: Alanine Aminotransferase 85 U/L (0-31); Albumin Level 4.3 g/dL (3.5-5.0); Alkaline Phosphatase 45 U/L (39-117); Anion Gap 12 (12-20); Aspartate Amino Transferase 57 U/L (5-31); Bilirubin Total 0.4 mg/dL (0.0-1.0); Blood Urea Nitrogen 13 mg/dL (9-16); Calcium 9.9 mg/dL (8.4-10.2); Carbon Dioxide 25 mmol/L (22-29); Chloride 105 mmol/L (96-108); Estimated Glomerular Filt Rate > 60; Glucose Random 80 mg/dL (60-115); Potassium 3.9 mmol/L (3.3-5.1); Sodium 138 mmol/L (135-145); Total Protein 9.2 g/dL (6.5-8.0)
[2024-10-20 12:39] LABS: IgA 18 mg/dL (47-310); IgG 2928 mg/dL (600-1640); IgM 61 mg/dL (50-300)
[2024-10-20 14:08] LABS: Kappa Light Chain, Free Serum 8.1 mg/L (3.3-19.4); Kappa/Lambda Lt Ch Free Ratio 0.11 (0.26-1.65); Lambda Light Chain, Free Serum 72.1 mg/L (5.7-26.3)
[2024-10-20 15:52] LABS: Beta-2 Microglobulin, Serum 2.17 mg/L (< OR = 2.51)
== END 2024-10-17 13:47 | disposition home or self-care (01) ==
LOC: HO.LAB 13:46
PROVIDERS: PCP Family Medicine; Visit Provider Internal Medicine
DX: D47.2 Monoclonal gammopathy (principal)
CPT/HCPCS: 36415; 80053; 82232; 82784; 83521; 85025

== ENCOUNTER → 2024-11-02 15:48 | Outpatient (BNV) | payer OTHER, SELFPAY | PROVIDERS: PCP Family Medicine; Visit Provider Radiology Diagnostic Radiology | DX: S34.105A Unspecified injury to L5 level of lumbar spinal cord, initial encounter (principal); M89.8X8 Other specified disorders of bone, other site; M47.812 Spondylosis without myelopathy or radiculopathy, cervical region | CPT/HCPCS: 72156; 72157; 72158 ==

== ENCOUNTER 2024-11-02 15:50 | Outpatient (REF) | payer OTHER, SELFPAY ==
[2024-11-02] MEDS: gadobutroL 7.5 ML VIAL IVPUSH (17:17)
== END 2024-11-02 15:51 | disposition home or self-care (01) ==
LOC: HO.MRI 15:50
PROVIDERS: PCP Family Medicine; Visit Provider Internal Medicine
DX: D47.2 Monoclonal gammopathy (principal)
CPT/HCPCS: 72156; 72157; 72158; A9585

== ENCOUNTER 2024-11-24 11:29 | Day surgery (SDC) | payer OTHER, SELFPAY ==
--- OUTSIDE RECORDS SUMMARY | 2024-11-10 12:06 | XMS_ITS | Data Portability ---
Author Organization [facility], , [facility] Address [address] [place] [address] Care Team Providers Care Forensic Scientist Name Role Phone QUIANA MANN [employer] OLGA LYNCH Supervisor Agency Appointments [phone] BILL JOSEPH Primary Care Provider Assessment No assessment recorded. Plan of Treatment Reminders Order Date Submit Date Provider Last Modified By Organization Details Last Modified Time Details Appointments Wellness Visit 30 2024 04:30P M Emi Gates MD Not available Not available Not available Lab lipid panel, serum 2023 024 [facility], [address] [place] [address], [id number], 04/07/2024 14:42:34 TSH, serum or plasma 2023 024 [facility], [address] [place] [address], [id number], 04/04/2024 12:04:55 glucose, QN [mass/vol ume], serum or plasma 2023 024 [facility], [address] [place] [address], [id number], 04/07/2024 14:42:34 hepatitis C virus Ab, serum 2022 023 [facility], [address] [place] [address], [id number], 03/26/2023 15:22:49 celiac disease comprehen sive panel, serum 2022 023 [facility], [address] [place] [address], [id number], 03/26/2023 15:22:48 CBC 2022 023 [facility], [address] [place] [address], [id number], 03/14/2023 12:03:38 TSH, serum or plasma 2022 023 [facility], [address] [place] [address], [id number], 03/26/2023 15:22:50 ESR (erythroc yte sedimenta tion rate), blood 2022 023 [facility], [address] [place] [address], [address], 03/14/2023 16:45:46 C-reactiv e protein, quantitat celia, serum or plasma 2022 023 [facility], [address] [place] [address], [address], 03/30/2023 09:34:40 vitamin B12, serum 2022 023 [facility], [address] [place] [address], [address], 03/15/2023 14:11:07 folate, serum 2022 023 [facility], [address] [place] [address], [address], 03/15/2023 14:11:08 iron + total iron-bind ing capacity (TIBC), serum 2022 023 [facility], [address] [place] [address], [address], 03/15/2023 14:24:00 Referral gastroent erologist referral - pt with bloating, hx of idiopathi c urticaria , bloating, and per ancestry celiac carrier, endorses bloating after gluten, eliminate d and improved symptoms 2022 023 [email or web address] [facility], [address] [place], [address], 03/19/2023 17:16:34 Procedures None recorded. Surgeries None recorded. Imaging None recorded. Medication Orders sertralin e 50 mg tablet 2023 024 [facility] #[id number], [address], [place], [id number], 04/03/2024 16:04:14 hydroxyzi ne HCl 25 mg tablet 2023 024 [facility] #[id number], [address], [place], [id number], 04/03/2024 16:04:15 Patient TargetsNo targets recorded. 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 ? ?L 3.98-1 0.04 Not Available [address], [address], 03/14/2023 12:03:38 03/14/20 23 03/14/2023 CBC RBC 4.20 M/? ? ?L 3.93-5 .22 Not Available [address], [address], 03/14/2023 12:03:38 03/14/20 23 03/14/2023 CBC HGB 12.2 g/dL 11.2-1 5.7 Not Available [address], [address], 03/14/2023 12:03:38 03/14/20 23 03/14/2023 CBC HCT 37.8 % 34.1-4 4.9 Not Available [address], [address], 03/14/2023 12:03:38 03/14/20 23 03/14/2023 CBC MCV 90.0 fL 79.4-9 4.8 Not Available [address], [address], 03/14/2023 12:03:38 03/14/20 23 03/14/2023 CBC MCH 29.0 pg 25.6-3 2.2 Not Available [address], [address], 03/14/2023 12:03:38 03/14/20 23 03/14/2023 CBC MCHC 32.3 g/dL 32.2-3 5.5 Not Available [address], [address], 03/14/2023 12:03:38 03/14/20 23 03/14/2023 CBC plt 334 K/? ? ?L 182-36 9 Not Available [address], [address], 03/14/2023 12:03:38 03/14/20 23 03/14/2023 CBC MPV 9.2 fL 9.4-12 .3 low Not Available [address], [address], 03/14/2023 12:03:38 03/14/20 23 03/14/2023 CBC neut% 45.1 % 34.0-7 1.1 Not Available [address], [address], 03/14/2023 12:03:38 03/14/2003/14/2023 CBC neut# 3.07 1.56-6 .13 Not Available [address], [address], 03/14/2023 12:03:38 03/14/2003/14/2023 CBC lymph % 45.1 % 19.3-5 1.7 Not Available [address], [address], 03/14/2023 12:03:38 03/14/2003/14/2023 CBC lymph # 3.07 K/? ? ?L 1.18-3 .74 Not Available [address], [address], 03/14/2023 12:03:38 03/14/2003/14/2023 CBC mono% 7.0 % 4.7-12 .5 Not Available [address], [address], 03/14/2023 12:03:38 03/14/2003/14/2023 CBC mono# 0.48 0.24-0 .56 Not Available [address], [address], 03/14/2023 12:03:38 03/14/2003/14/2023 CBC eo% 2.1 % 0.7-5. 8 Not Available [address], [address], 03/14/2023 12:03:38 03/14/2003/14/2023 CBC eo# 0.14 0.04-0 .36 Not Available [address], [address], 03/14/2023 12:03:38 03/14/20 23 03/14/2023 CBC baso% 0.6 % 0.1-1. 2 Not Available [address], [address], 03/14/2023 12:03:38 03/14/20 23 03/14/2023 CBC baso# 0.04 0.00-0 .08 Not Available [address], [address], 03/14/2023 12:03:38 03/14/20 23 03/14/2023 CBC RDW-CV 12.7 % 11.7-1 4.4 Not Available [address], [address], 03/14/2023 12:03:38 03/14/20 23 03/14/2023 CBC Ig% 0.100 % 0.000- 1.500 Ig % >0.5 Indic ates possi ble Left Shift Not Available [address], [address], 03/14/2023 12:03:38 03/14/20 23 03/14/2023 CBC Ig# 0.010 0.000- 0.093 Not Available [address], [address], 03/14/2023 12:03:38 03/14/20 23 03/14/2023 CBC NRBC% 0.0 % 0.0-0. 2 Not Available [address], [address], 03/14/2023 12:03:38 03/14/20 23 03/14/2023 CBC NRBC# 0.000 0.000- 0.012 Not Available [address], [address], 03/14/2023 12:03:38 03/14/20 23 03/14/2023 ESR sed rate 45.0 0.0-15 .0 high Not Available [address], [address], 03/14/2023 16:45:46 03/14/20 23 03/15/2023 VITAM IN B12 vitamin B12 351 pg/mL 230-10 50 Not Available [address], [address], 03/15/2023 14:11:07 03/14/20 23 03/15/2023 FOLAT E folate 8 NG/mL 3-16 Not Available [address], [address], 03/15/2023 14:11:08 03/14/20 23 03/15/2023 IRON PANEL iron 81 ug/dL 35-150 Not Available [address], [address], 03/15/2023 14:24:00 03/14/20 23 03/15/2023 IRON PANEL T.I.B.C. 312 ug/dL 250-45 0 Not Available [address], [address], 03/15/2023 14:24:00 03/14/20 23 03/15/2023 IRON PANEL % saturation 26.0 % Not Available [address], [address], 03/15/2023 14:24:00 03/14/20 23 03/26/2023 SHREYAS C DISEA SE COMPR EHENS CELIA PANEL interpretati on No serol ogica l evide nce for shreyas c disea se is prese nt. Consi gail IgA defic iency . Not Available [facility] [address] [place] [address] Phillip SainiborLUX vogel, [address], 03/26/2023 15:22:48 03/14/20 23 03/26/2023 SHREYAS C DISEA SE COMPR EHENS CELIA PANEL tissue transglutami nase Ab, IgA <1.0 U/mL normal Value Inter preta tion ----- ----- ----- ---- <15.0 Antib sherice not detec noah > or = 15.0 Antib sherice detec noah Not Available [facility] [address], [place], [address], 03/26/2023 15:22:48 03/14/2003/26/2023 SHREYAS C DISEA SE COMPR EHENS CELIA PANEL immunoglobul in A 35 mg/dL 47-310 low Not Available [facility] [address], [place], [address], 03/26/2023 15:22:48 03/14/2003/26/2023 HEPAT ITIS C AB [...] a test for HCV RNA (test code 11438 ) is sugwilliams motad. For addit ional infor bruce guevara e refer to http: //[facility] kandice morillo stdia gnost ics.c om/fa q/FAQ 22v1 (This link is being provi ded for infor bruce sheth/ educa huy l purpo ses only. ) Not Available [facility] [address], [place], [address], 03/26/2023 15:22:49 03/14/2003/26/2023 TSH TSH 2.67 mIU/L normal Refer ence Range > or = 20 Years 0.40- 4.50 Pregn kavitha Range s First trime ster 0.26- 2.66 Secon d trime ster 0.55- 2.73 Third trime ster 0.43- 2.91 Not Available [facility] [address], [place], [address], 03/26/2023 15:22:50 03/14/2003/26/2023 TISSU E TRANS GLUTA HAL E AB, IGG tissue transglutami nase Ab, IgG <1.0 U/mL normal Value Inter preta tion ----- ----- ----- ---- <15.0 Antib sherice not detec noah > or = 15.0 Antib sherice detec noah Not Available [facility] [address], [place], [address], 03/26/2023 15:22:51 03/14/2003/30/2023 C-RIKI CTIVE PROTE IN C-reactive protein 1.1 mg/L <8.0 normal Not Available [facility] [address], [place], [address], 03/30/2023 09:34:40 08/07/20 23 08/08/2023 C-RIKI CTIVE PROTE IN (RCRP ) C-reactive protein (rcrp) 1.8 mg/dL 0.5-9. 0 LIPS= Speci men Sligh tly Lipem ic. Chem Resul ts may be effec noah. Not Available [address], [place], [address], 08/08/2023 11:43:47 08/07/2008/11/2023 SHREYAS C DISEA SE COMPR EHENS CELIA PANEL interpretati on No serol ogica l evide nce for shreyas c disea se is prese nt. Consi gail IgA defic iency . Not Available [facility] [address], [place], [address], 08/11/2023 07:18:26 08/07/20 23 08/11/2023 SHREYAS C DISEA SE COMPR EHENS CELIA PANEL tissue transglutami nase Ab, IgA <1.0 U/mL normal Value Inter preta tion ----- ----- ----- ---- <15.0 Antib sherice not detec noah > or = 15.0 Antib sherice detec noah Not Available [facility] [address], [address], 08/11/2023 07:18:26 08/07/2008/11/2023 SHREYAS C DISEA SE COMPR EHENS CELIA PANEL immunoglobul in A 29 mg/dL 47-310 low Not Available [facility] [address], [address], 08/11/2023 07:18:26 08/07/20 23 08/11/2023 SED RATE BY MODIF IED WESTE RGREN sed rate by modified westergren 48 mm/h < or = 20 high Not Available [facility] [address], [address], 08/11/2023 07:18:27 08/07/2008/11/2023 TISSU E TRANS GLUTA HAL E AB, IGG tissue transglutami nase Ab, IgG <1.0 U/mL normal Value Inter preta tion ----- ----- ----- ---- <15.0 Antib sherice not detec noah > or = 15.0 Antib sherice detec noah Not Available [facility] [address], [address], 08/11/2023 07:18:27 04/03/20 24 04/04/2024 TSH TSH 2.58 uIU/m L 0.50-6 .00 The [employer] can [employer] ge [employer] Endoc rinol ogy and Ameri can Thyro id Assoc iatio n recom mend goal TSH value s betwe en 0.4-4 .0 mIU/m L. Not Available [address], [address], 04/04/2024 12:04:55 04/03/20 24 04/07/2024 LIPID PANEL cholesterol 229 mg/dL <200 mg/dl Noa able 200-2 39 mg/dl Borde rline High >240 mg/dl High Not Available [address], [address], 04/07/2024 14:42:33 04/03/20 24 04/07/2024 LIPID PANEL triglyceride s 123 mg/dL <150 mg/dL Park l 150-1 99 mg/dL Borde rline High 200-4 99 mg/dL High >500 mg/dL Very High Not Available [address], [address], 04/07/2024 14:42:33 04/03/20 24 04/07/2024 LIPID PANEL direct HDL 52 mg/dL <40 mg/dl - Major Risk for CHD >60 mg/dl - Negat celia Risk for CHD Not Available [address], [address], 04/07/2024 14:42:33 04/03/20 24 04/07/2024 GLUCO SE glucose 99 mg/dL 70-100 Not Available [address], [address], 04/07/2024 14:42:34 04/03/20 24 04/07/2024 DIREC T [...] r is not corneleunice tovar. Not Available [address], [address], 04/07/2024 14:42:35 Result Notes None recorded. Problems Name Problem SNOMED Code Status Onset Date Resolution Date Notes Provider Name and Address Organization Details Recorded Time Chronic urticaria 09012427 Active Not Available [facility] 1 23:51:51 Monoclonal gammopathy of uncertain significan ce 201916030 Active 2023 sees quin Gates MD [address] [place] [address], [address] , [facility] 4 14:54:20 Anxiety 39996286 Active 2023 Emi Gates MD [address] [place] [address], [address] , [facility] 4 14:54:32 Headache 99875406 Active 2005 Not Available [facility] 1 23:51:51 Dysmenorrh ea 371559447 Completed 200608/06/2013 Not Available [facility] 3 02:03:01 On examinatio n - a rash Completed 08/06/2013 Not Available [facility] 3 02:00:47 Acne 52487545 Active 2007 Not Available [facility] 1 23:51:51 Allergy to drug 819383943 Active 2006 Not Available [facility] 1 23:51:51 Dog bite Completed 08/06/2013 Not Available [facility] 3 02:04:21 Malaise and fatigue 338172435 Completed 200508/06/2013 Not Available [facility] 3 02:00:16 Disorder of upper respirator y system 424217712 Completed 200508/06/2013 Not Available [facility] 3 02:03:48 Urticaria 281563486 Active 2003 Not Available [facility] 1 23:51:51 Problem Notes None recorded. Procedures Surgical History Date Name Laterality Status Provider Name and Address Organization Details Recorded Time 8 POC Flu Testing completed Annalisa Hauser [facility] 09/27/2017 14:31:44 7 POC Strep Testing completed Claire Bliss [facility] 08/21/2017 17:35:36 Imaging Results None recorded. [...] Avai lable Vitals Date Recorded Body weight Body mass index (BMI) Body height Heart rate Systolic blood pressure Diastolic blood pressure Provider Name and Address Organization Details Last Updated DateTime 2 83278.1 8 g 24.4 kg/m2 172.72 cm 76 /min 100 mm[Hg] 68 mm[Hg] Leyda Shafer [facility] 2 15:50:53 Date Recorded Body weight Body mass index (BMI) Body height Heart rate Systolic blood pressure Diastolic blood pressure Provider Name and Address Organization Details Last Updated DateTime 3 02634.7 8 g 24.3 kg/m2 172.72 cm 72 /min 115 mm[Hg] 68 mm[Hg] Mariely Mckeon [facility] 3 15:38:20 Date Recorded Body height Provider Name an d Address Organization Details Last Updated DateTime 11/26/2023 172.72 cm Mariely Mckeon [facility] 11/26/2023 14:27:02 Date Recorded Body height Body mass index (BMI) Body weight Heart rate Systolic blood pressure Diastolic blood pressure Provider Name and Address Organization Details Last Updated DateTime 4 170.82 cm 25.2 kg/m2 95369.3 6 g 80 /min 110 mm[Hg] 70 mm[Hg] Mariely Mckeon [facility] 4 15:38:59 Social History Question Answer Notes LastModified by Organizat ion Details LastModified Time Tobacco Smoking Status Never Smoker Not Available [facility] 08/03/2011 04:53:49 What Is Your Level Of Alcohol Consumption? Moderate Information not available 03/02/2022 Do You Wear A Helmet When Biking? Yes Information not available 08/20/2015 What Is Your Level Of Caffeine Consumption? Moderate 1 Cups Of Coffee Daily [email or web address] Information not available 04/03/2024 How Much Tobacco [...] Or The Highest Degree You Have Received? 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 No [email or web address] Information not available 03/08/2023 How Many Days [...] Others? With Others Information not available 08/20/2015 Patient Has Health Care Proxy Signed And In Chart Yes [email or web address] Information not available 04/04/2024 Marital Status (spouse With CML). Information not available 08/20/2015 Mosquito Repellent Used Routinely Yes Information not available 08/20/2015 What Was The Date Of Your Most Recent Tobacco Screening? 04/03/2024 [email or web address] Information not available 04/03/2024 How Many Children Do You Have? 2 Bryan (red Head) 2014, Rashida 2017 Information not available 03/02/2022 What Is Your [...] You Consumed 4 Or More Drinks? 0 [email or web address] Information not available 03/08/2023 Sex: Female Functional [...] ed as Thyroi d Diseas e [id number] Not available 04/28/2013 03:00:11 Paternal Grandmother Cerebrovascu lar accident due to arryth daylin. [email or web address] Not available 09/23/2013 09:06:24 Father Hypertensive disorder 40 Not available 03/02 16:06:29 Father Diabetes mellitus [email or web address] Not available 16:05:07 Notes:Mother: HTN, Graves, C [...] virus, quadrivalent, PF 4 completed Not Available [facility] 10/04/2019 02:37:18 Influenza, split virus, quadrivalent, PF 5 completed Not Available [facility] 10/04/2019 02:38:49 Tdap 9 completed Not Available [facility] 10/04/2019 02:30:34 Influenza, split virus, quadrivalent, PF 8 completed Not Available [facility] 10/04/2019 02:40:14 Influenza, split virus, quadrivalent, PF 9 completed Not Available [facility] 10/04/2019 02:28:14 Td (adult), 2 Lf tetanus toxoid, preservative free, adsorbed 2 completed Collette Gerber, [facility], [address], [facility] 03/04/2022 13:03:37 Influenza, split virus, quadrivalent, preservative 1 completed LUX Barnes [facility] 09/22/2021 10:06:28 COVID-19, mRNA, LNP-S, PF, 30 mcg/0.3 mL dose 1 completed LUX Noyola [facility] 09/26/2021 09:18:18 Past Encounters Encounter ID Performer Location Encounter Start Date Encounter Closed Date Diagnosis/Indication Diagnosis SNOMED-CT Code Diagnosis ICD10 Code Diagnosis Note [id number] LAB - [facility] [address] [place] [address] 01/12/2004 14:50:23 01/12/2004 14:50:41 [id number] Radiology , [facility] [address] [place] [address] 12/04/2005 11:33:20 12/04/2005 12:06:23 [id number] [facility], OFF[facility] [address] [place] [address] 05/16/2007 13:24:20 05/22/2007 18:06:43 [id number] [facility] [address] [address] [place] [address] 08/02/2007 14:17:21 10/07/2008 02:02:29 [id number] [facility] [address] [address] [place] [address] 09/05/2007 09:12:54 10/07/2008 02:02:29 [id number] [facility], OFFICE [address] [facility] [place] [address] 05/01/2008 11:38:13 10/07/2008 02:02:29 [id number] [facility] OFFICE [address] [facility] [place] [address] 01/18/2009 13:38:51 01/25/2009 09:09:13 [id number] [facility] OFF[facility] [address] [place] [address] 02/08/2009 11:35:56 02/12/2009 13:05:55 [id number] [facility] OFFICE [address] [facility] [place] [address] 04/26/2011 12:08:39 04/28/2011 09:19:14 [id number] [facility] OFF[facility] [address] [place] [address] 01/12/2012 13:14:32 01/15/2012 09:54:43 [id number] [facility] OFF[facility] [address] [place] [address] 02/26/2012 14:07:31 02/29/2012 07:12:16 [id number] RADHA Trevizo [facility], OFFICE [address] [place] [address] 09/23/2013 08:14:33 09/23/2013 12:31:42 Adult health examination 837149480 see Risk Assessment and Lifestyle Change Counseling section above. healthy 28 year old. considerin g . will check tsh due to family history. Counseling [id number] Family his tory of Thyroid disorder 339392267 will check tsp as pt is attempting . Acne 49056478 given pt is attempting to soon discussed contraindi cation of retinoids. Influenza vaccine needed 8801013565 723 [id number] Alyssa Goldman MD , [facility], [address] [place] [address] 08/20/2015 10:23:24 08/20/2015 11:52:10 Active or passive immunization 646470173 Z23 Hyperventilation 3735318 4 R06.4 likely hyperventi lation syndrome some new stressors in life suggested therapy might be helpful over all recommende d avoiding Chobani yogurt to see also if this triggers the sx given she has hx of various triggers reviewed exercises when she has sx below f/u PRN pt reassured [id number] Shelbi Montano , [facility], [address] [place] [address] 10/13/2015 10:23:08 10/14/2015 08:18:03 Adult health examination 586041003 Z00.00 see Risk Assessment and Lifestyle Change Counseling section above, healthy 30 year old, now with 10 month old daughter, thriving, followed by bottle filler, Counseling 642525868 Z71 .9 Scar 987692009 L90.5 residual scarring from adolescent acne. referral to derm for management . Chronic urticaria 084985 05 L50.8 stable with benedryl every other day qhs. [id number] Raúl Ceron MD , [facility], [address] [place] [address] 08/21/2017 17:23:35 08/22/2017 08:07:53 Acute upper respiratory infection 84480409 J06.9 [id number] Alyssa Goldman MD , [facility], [address] [place] [address] 09/27/2017 14:14:17 09/28/2017 14:20:25 Common cold 61506119 J00 Cold self care measures reviewed and encouraged (fluids, steam inhalation , adequate rest). F/U if sx worsen or aren't resolving. [id number] Fatmata Joyner , [facility], [address] [place] [address] 07/08/2018 08:27:29 07/11/2018 16:26:03 Active or passive immunization 612783649 Z23 [id number] Rafia Paul RN , [facility], [address] [place] [address] 07/04/2019 07:53:12 07/11/2019 14:44:03 Administration of influenza vaccine 53774890 Z23 Active or passive immunization 795449552 Z23 [id number] Collette Gerber, [facility] , [facility], [address] [place] [address] 03/02/2022 15:31:05 03/08/2022 16:34:21 Adult health examination 164127365 Z00.00 See Risk Assessment and Lifestyle Change Counseling section above,Gene ral: Healthy 36 year old, now two kids (daughter born in 2015, son in 2018). Due for pap, prefers to complete with OBGYN- appt. scheduled April 2022. Recent URI x10 days resolving. Mood: Doing well overall. Discussed peer support for emotionall y challengin g terminatio n in 2019, pt reports well supported but will seek additional support services as desired. Counseling 768101705 Z71 .9 Discussed covid vaccinatio n-- fully [...] vitamin D supplement ation. Depression screening 171 326473 Z13.31 depression screening tool administer ed, entered into emr, scored and discussed, time greater than 7.5 minutes Screening for alcohol abuse 745277275 Z13.39 Active or passive immunization 269513590 Z23 Chronic urticaria 767084 05 L50.8 stable with half dose zyrtec QOD. Answered questions regarding possible environmen anabell contributi ng factors given relief when traveling, discussed option of further allergy evaluation pt to consider. [id number] Collette CHUY Prabhakar-LSIS , [facility], [address] [place] [address] 03/08/2023 15:28:07 03/08/2023 16:24:01 Adult health examination 423562579 Z00.00 See Risk Assessment and Lifestyle Change Counseling section above,Gene ral: Healthy 37 year old, now two kids (daughter born in 2015, son in 2018). pap followed by jimbo kiddptroverto ry guidance reviewed Depression screening 171 Z13.31 depression screening tool administer ed Screening for alcohol abuse 135385885 Z13.39 Alcohol use screening tool administer ed Screening for disorder 994922614 Z11.59 Chronic urticaria 171363 05 L50.8 stable with half dose zyrtec QOD. now with bloating improved with gluten avoidance, see belowrecen t pain and pruitits after shower, if persist consider allergy referral Abdominal bloating 94678 9008 R14.0 possible celiacs, has mostly abstained from gluten, labs as ordered above, referral to gi [id number] Emi Gates MD , [facility], [address] [place] [address] 11/26/2023 14:26:07 11/26/2023 18:07:42 Monoclonal gammopathy of uncertain significance 932688621 D47.2 pt [facility] for second opinionfol lowup heme Anxiety 88108373 F41.9 discussed daily med vs prn, decided to try both for nowdiscuss ed expectatio ns and SEcall if concernsfo llowup with me 3 weeks ( switching to me as PCP) [id number] Emi Gates MD , [facility], [address] [place] [address] 04/03/2024 15:24:46 04/04/2024 11:52:10 Adult health examination [id number] Z00.00 pap 05/08 has GYNtd 03/08never smokerlabs today Depression screening [id number] Z13.31 depression screening tool administer ed, 0 Screening for alcohol abuse [id number] Z13.39 Alcohol use screening tool administer ed Monoclonal gammopathy of uncertain significance 342574614 D47.2 followup heme Anxiety [id number] F41.9 stable off medscall if concerns Health Concerns Section Related Observation LastModified by Organization Detai ls LastModified Time None Recorded Concern Status LastModified by Organization Details LastModified Time None Recorded Advance Directives Directive None Recorded Payers Encounter Date Sequence Insurance Name Policy Number Policy Cunningham Covered Member ID Cunningham Member ID Guarantor Name 07/04/2019 1 [facility] (HMO) [id number] Coreen Muñiz [id number] Shelbi Muñiz 03/02/2022 1 [facility] (O) [id number] Shelbi Muñiz [id number] Shelbi Muñiz 03/08/2023 1 [facility] [id number] Shelbi Khaliloi [id number] Shelbi Muñiz 11/26/2023 1 [facility] [id number] Shelbi Khaliloi [id number] Shelbi Muñiz 04/03/2024 1 [facility] - DOS ON OR AFTER 2022 - [facility] (MEDICAID REPLACEMENT - HMO) Shelbi Muñiz [id number] Shelbi Muñiz Notes Date Note Type Note Provider Name [...] well overall, 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 Was seeing mobile plant operators for chronic hives. 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 Mspike 2.6 if reaches 3 considered smoldering multiple myeloma.Pt freaking out. Cant sleep, worse at night when less distractions. Afraid of dying, has small children Emi Gates MD [address] [place] [address], [phone], [facility] 11/26/2023 15:01:29 04/03/2024 text/html [birth year]38 yo F f or [place].Anxiety stable, stopped meds. Took a vacation and came back feeling better. Sleeping well. Still anxious but using lifestyle changes to manage.Seeing heme in april for 6 month followup labs Emi Gates MD [address] [place] [address], [phone], [facility] 04/03/2024 16:07:43 OBGyn Episode No OBEpisode recorded.
[2024-11-24] VITALS (11 sets, daily range): BP systolic 109–137; BP diastolic 64–84; PULSE 79–108; RESP 12–20; TEMP 37.2–38.1; O2SAT 99–100; BMI 23.6
--- NOTE | ~2024-11-24 | CT_ITS ---
EXAMINATION: CT bone marrow biopsy. CLINICAL INDICATION: Multiple myeloma. COMPARISON: None. TECHNIQUE: Following explaining CT guided iliac crest bone marrow biopsy procedure, benefits and risk, a written consent was obtained. Examination was placed prone on fluoroscopy table and preliminary CT imaging was obtained through the pelvis. Markers were placed on the posterior back and repeat CT imaging was obtained. An optimal marker was selected along the posterior pelvis overlying the left iliac crest and area was marked on the skin. The marked site was cleaned and draped in usual sterile manner. 1% lidocaine was inserted pointed side. There is small skin incision an 16-gauge core biopsy guide needle was inserted from the skin to the level of posterior iliac crest cortex and through the cortex into the posterior bone marrow with a drill. After getting through the posterior cortex a needle was attached to the guide needle and bone marrow aspirate into syringes. Coaxially are needle inserted through the guiding needle and core biopsy performed. Postprocedure both needles were withdrawn and complete hemostasis achieved at puncture site. Patient tolerated procedure extremely well. Postprocedure repeat CT imaging was obtained and reveals no hematoma. Sterile dressing applied post procedure. The patient was monitored and conscious sedation was given during the exam. Patient was monitored by nursing and physician during exam. FINDINGS/ CT/CT biopsy asp core bone marrow IMPRESSION: Successful left posterior iliac crest bone marrow biopsy and aspiration performed without immediate complications. Electronically signed by: Steve Archuleta MD 11/28/2024 11:56 AM EDT
[2024-11-24 12:30] LABS: UPreg QC Valid YES
[2024-11-24 12:31] LABS: Urine Pregnancy NEGATIVE (NEGATIVE)
[2024-11-24 12:38] LABS: Baso%MD 0.6 %; Eos%MD 2.4 %; Hematocrit 34.6 % (37.0-47.0); Hemoglobin 11.7 g/dl (12.0-16.0); Lymph%MD 42.4 %; Mean Corpuscular HGB Conc 33.8 g/dl (31.0-35.0); Mean Corpuscular Hemoglobin 29.9 pg (27.0-33.0); Mean Corpuscular Volume 88.5 fL (80.0-98.0); Mean Platelet Volume 8.7 fL (9.4-12.3); Neut%MD 46.6 %; Platelet Count 244 X10*3/uL (160-400); Red Blood Count 3.91 X10*6/uL (4.20-5.50); White Blood Count 6.3 X10*3/uL (4.8-10.8)
[2024-11-24 12:44] LABS: INTERNATIONAL NORM RATIO 1.1 (0.9-1.1); Prothrombin Time 12.4 SEC (10.9-12.4)
[2024-11-24 13:19] LABS: Atypical Lymph Absolute Manual 0.1 x10*3/uL; Atypical Lymphs Percent Manual 2 % (0-6); Band Neutrophils Percent 1 % (3-5); Eosinophils Absolute Manual 0.3 X10*3/uL (0.0-0.4); Eosinophils Percent Manual 5 % (0-4); Lymphocytes Absolute Manual 2.4 X10*3/uL (1.2-4.9); Lymphocytes Percent Manual 38 % (20-40); Monocytes Absolute Manual 0.4 X10*3/uL (0.1-1.2); Monocytes Percent Manual 6 % (2-11); Neutrophils Absolute Manual 3.1 X10*3/uL (2.0-8.3); Neutrophils Percent Manual 48 % (45-73)
[2024-11-24 13:21] LABS: Platelet Estimate NORMAL (NORMAL); Platelet Morphology Comment NORMAL; RBC Morphology NORMAL
[2024-11-24] MEDS: fentaNYL citrate/PF 100 MCG/2 ML VIAL 25 MCG IVPUSH ×3 (13:43→13:53)
[2024-11-24] MEDS: Midazolam HCl 2 MG/2 ML VIAL 1 MG IVPUSH ×3 (13:44→13:53)
[2024-11-24] MEDS: Acetaminophen 325 MG TABLET 650 MG PO (14:36)
[2024-11-24 14:39] LABS: Bone Marrow SEE SEPARATE REPORT
== END 2024-11-24 15:33 | disposition home or self-care (01) ==
PROVIDERS: Anesthesiology; Pathology Anatomic Pathology & Clinical Pathology; Radiology Diagnostic Radiology; PCP Family Medicine; Visit Provider Internal Medicine
DX: D47.2 Monoclonal gammopathy (principal); C90.00 Multiple myeloma not having achieved remission; J30.9 Allergic rhinitis, unspecified; R51.9 Headache, unspecified; H10.10 Acute atopic conjunctivitis, unspecified eye; L50.9 Urticaria, unspecified; L70.9 Acne, unspecified; Z97.5 Presence of (intrauterine) contraceptive device; Z79.899 Other long term (current) drug therapy
CPT/HCPCS: 36415; 38222; 81025; 85007; 85027; 85610; 88184; 88185; 88237; 88264; 88305; 88311; 88313; 88374; 99152; J1642; J2003; J2250; J3010

== ENCOUNTER → 2024-11-24 12:21 | Outpatient (BNV) | payer OTHER, SELFPAY | PROVIDERS: PCP Family Medicine; Visit Provider Radiology Diagnostic Radiology | DX: C90.00 Multiple myeloma not having achieved remission (principal) | CPT/HCPCS: 38222; 77012 ==

== ENCOUNTER 2024-12-11 13:00 | Day surgery (SDC) | payer OTHER, SELFPAY ==
[2024-12-11] VITALS (11 sets, daily range): BP systolic 108–130; BP diastolic 46–77; PULSE 9–102; RESP 11–20; TEMP 36.4–36.7; O2SAT 97–100; BMI 24.0
--- NOTE | ~2024-12-11 | CT_ITS ---
PROCEDURES: 1. Limited preprocedure CT of the pelvis. Permanent images saved in PACS. 2. 11 g bone marrow core biopsy of the left posterior iliac spine 3. 11 g bone marrow aspirate of the left posterior iliac spine MEDICATIONS: -Versed Fentanyl, and lidocaine 1% 10 mL SQ -Antibiotics: None -For additional details, please see nursing flowsheet. COMPLICATIONS: None ESTIMATED BLOOD LOSS: < 5 ml CONTRAST: None SPECIMENS: 11 g core placed in formalin. Bone marrow aspirate placed in EDTA and sodium heparin tubes MODERATE SEDATION TIME: 22 min PROCEDURE NOTE: The procedure, risks, benefits, and alternatives were carefully explained to the patient and written informed consent was obtained. The patient was placed prone on the CT table. A timeout was performed. A limited CT of the pelvis was performed to localize posterior iliac spine and choose appropriate needle entry and trajectory. The patient was prepped and draped in usual sterile fashion. The skin, subcutaneous tissues, and periosteum were anesthetized with lidocaine. Under CT guidance, an 11-gauge bone marrow biopsy needle was advanced into the posterior iliac spine, with the tip positioned slightly cephalad. An 11-gauge core biopsy of the bone marrow was performed and was placed in formalin. Next, the 11-gauge bone marrow biopsy needle was then advanced into the posterior iliac spine, under CT guidance, with the tip positioned slightly caudal. A bone marrow aspirate was performed. The specimen was placed in the provided EDTA and sodium heparin tubes. The needle was removed. A dry dressing was applied and secured with Tegaderm. There were no immediate complications. The patient was stable after the procedure and was transferred to the post anesthesia care unit. The procedure was done under moderate sedation with a dedicated nurse for monitoring of vital signs. CT/CT biopsy asp core bone marrow Impression: CT-guided bone marrow biopsy and aspirate Electronically signed by: Vin Massey MD 12/11/2024 02:47 PM EDT
[2024-12-11 13:28] LABS: UPreg QC Valid YES; Urine Pregnancy NEGATIVE (NEGATIVE)
[2024-12-11] MEDS: Midazolam HCl 2 MG/2 ML VIAL 1 MG IVPUSH ×2 (14:13→14:23)
[2024-12-11] MEDS: fentaNYL citrate/PF 100 MCG/2 ML VIAL 50 MCG IVPUSH ×2 (14:13→14:24)
[2024-12-11 15:07] LABS: Bone Marrow SEE SEPARATE REPORT
== END 2024-12-11 15:50 | disposition home or self-care (01) ==
PROVIDERS: Radiology Vascular & Interventional Radiology; Student in an Organized Health Care Education/Training Program; PCP Family Medicine; Visit Provider Internal Medicine
DX: D47.2 Monoclonal gammopathy (principal); D64.9 Anemia, unspecified; R79.89 Other specified abnormal findings of blood chemistry; F41.9 Anxiety disorder, unspecified; J30.9 Allergic rhinitis, unspecified; R51.9 Headache, unspecified; Z83.2 Family history of diseases of the blood and blood-forming organs and certain disorders involving the immune mechanism; Z98.890 Other specified postprocedural states
CPT/HCPCS: 36415; 38222; 81025; 88184; 88185; 88237; 88264; 88305; 88311; 88313; 88342; 88344; 99152; 99153; J2003; J2250; J3010

== ENCOUNTER → 2024-12-11 13:46 | Outpatient (BNV) | payer OTHER, SELFPAY | PROVIDERS: PCP Family Medicine; Visit Provider Student in an Organized Health Care Education/Training Program | DX: D47.2 Monoclonal gammopathy (principal) | CPT/HCPCS: 38222; 77012; 99152 ==